=== PATIENT | female | born 1950 | race Caucasian/White ===

== ENCOUNTER → 2017-08-30 | Outpatient (CLI) | payer OTHER | LOC: M.RAD 08-28 14:02 | DX: R92.0 Mammographic microcalcification found on diagnostic imaging of breast (principal); Z85.3 Personal history of malignant neoplasm of breast ==

== ENCOUNTER → 2018-08-31 | Outpatient (CLI) | payer MEDICARE, OTHER | LOC: M.RAD 10:16 | DX: Z12.31 Encounter for screening mammogram for malignant neoplasm of breast (principal) ==

== ENCOUNTER → 2018-09-05 | Outpatient (CLI) | payer MEDICARE, OTHER ==
--- NOTE | 2018-09-05 13:42 | 2DMMODE ---
[place] [address] 2 D/M-MODE ECHOCARDIOGRAM Name: JENNYSKYLERRA MARTINEZ Room: [facility]#: [id number] Admission: 09/05/18 Attend Phys: Karon Flores Discharge: Date of : 54 Date of Service: 09/05/18 1342 Report #: [id number] THIS REPORT FOR: //name// APPROVED REPORT Study performed: 09/05/2018 07:59:49 EXAM: Comprehensive 2D, Doppler, and color-flow Echocardiogram Patient Location: Out-Patient BSA: 1.64 HR: 74 bpm BP: 135/68 mmHg Other Information Study Quality: Technically Difficult Technically limited study due to Breast Implant. Indications Chest Pain 2D Dimensions IVSd: 8.09 (7-11mm) LVOT Diam: 18.56 (18-24mm) LVDd: 40.71 mm PWd: 7.77 (7-11mm) Ascending Ao: 26.26 (22-36mm) LVDs: 24.34 (25-40mm) Aortic Root: 16.38 mm Volumes Left Atrial Volume (Systole) LA ESV Index: 11.60 mL/m2 Aortic Valve AoV Peak Jose Armando.: 0.76 m/s AO Peak Gr.: 2.34 mmHg LVOT Max P.33 mmHg AO Mean Gr.: 1.41 mmHg LVOT Mean P.26 mmHg LVOT Max V: 0.76 m/s AO V2 VTI: 17.74 cm LVOT Mean V: 0.53 m/s CITLALLI (VTI): 2.64 cm2 LVOT V1 VTI: 17.31 cm Mitral Valve E/A Ratio: 1.28 MV Decel. Time: 180.26 ms MV E Max Jose Armando.: 0.75 m/s MV PHT: 52.28 [place] [address] 2 D/M-MODE ECHOCARDIOGRAM Name: SKYLER ALVARADO JUAN Room: [facility]#: [id number] Admission: 09/05/18 Attend Phys: Karon Flores Discharge: Date of : 54 Date of Service: 09/05/18 1342 Report #: [id number] MVA (PHT): 4.21 cm2 TDI E/Lateral E': 5.77 E/Medial E': 7.50 Medial E' Jose Armando.: 0.10 m/s Lateral E' Jose Armando.: 0.13 m/s Pulmonary Valve PV Peak Jose Armando.: 0.79 m/s PV Peak Gr.: 2.51 mmHg Left Ventricle The left ventricle is normal size. There is normal LV segmental wall motion. There is normal left ventricular wall thickness. Left ventricular systolic function is normal. The left ventricular ejection fraction is within the normal range. LVEF is 55-60%. The left ventricular diastolic function is normal. Right Ventricle The right ventricle is normal size. The right ventricular systolic function is normal. Atria The left atrium size is normal. The right atrium size is normal. Aortic Valve The aortic valve is normal in structure. No aortic regurgitation is present. There is no aortic valvular stenosis. Mitral Valve The mitral valve is normal in structure. Mild mitral regurgitation. No evidence of mitral valve stenosis. Tricuspid Valve The tricuspid valve is normal in structure. There is no tricuspid valve regurgitation noted. Pulmonic Valve Pulmonic valve is not well visualized. There is no pulmonic valvular regurgitation. Great Vessels The aortic root is normal in size. IVC is normal in size and collapses >50% with [place] [address] 2 D/M-MODE ECHOCARDIOGRAM Name: SKYLER ALVARADO Room: [facility]#: [id number] Admission: 09/05/18 Attend Phys: Karon Flores Discharge: Date of : 54 Date of Service: 09/05/18 1342 Report #: [id number] There is no pericardial effusion. <Conclusion> Left ventricular systolic function is normal. The left ventricular ejection fraction is within the normal range. <ELECTRONICALLY SIGNED> By: Randy Chapman MD, FACC 09/05/18 1342 134 41 Randy Chapman MD, FAC /INF
== END ==
LOC: M.CRD 08-20 15:59
DX: I34.0 Nonrheumatic mitral (valve) insufficiency (principal); M85.851 Other specified disorders of bone density and structure, right thigh; Z78.0 Asymptomatic menopausal state

== ENCOUNTER → 2018-09-10 | Outpatient (CLI) | payer MEDICARE, OTHER ==
--- NOTE | 2018-09-11 16:04 | 24HR ---
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 The total time analyzed was 23:53 hours. Start time was 10:11am1. There was a total of 542315 beats. Less than 1% were Ventricular beats, less than 1% were Supraventricular beats, and patient is not paced. Mean Heart Rate: 84 Total Beats: [id number] Maximum Heart Rate:163 @ 2:28pm1 Tachycardia beats: 53979 (>=100 BPM) 29% Minimum Heart Rate: 57 @ 9:39pm1 Bradycardia beats: 0 (<= 50 BPM) 0% Pauses: 0 (> 2.5 sec.) Longest RR at: 1.172 seconds at 5:07am2 Conclusion 1. underlying Normal sinus 2. No SVT or AFIB 3. no pauses 4. Diary returned revealed symptoms of lightheadedness, didn't correlate with abnormal ecg Electronically Signed On 09-11-2018 16:04:18 CDT by Jessee Conroy [email or web address] <ELECTRONICALLY SIGNED> By: Jessee Conroy MD, FACC 09/11/18 1604 1119 1119 Jessee Conroy MD, FACC /EPI
== END ==
LOC: M.CRD 09:55
DX: R00.2 Palpitations (principal); R42 Dizziness and giddiness; R55 Syncope and collapse

== ENCOUNTER → 2019-09-05 | Outpatient (CLI) | payer MEDICARE, OTHER | LOC: M.RAD 08:06 | DX: Z12.31 Encounter for screening mammogram for malignant neoplasm of breast (principal) ==

== ENCOUNTER → 2020-09-07 | Outpatient (CLI) | payer MEDICARE, OTHER | LOC: M.RAD 08:30 | PROVIDERS: ATTEND Family Medicine | DX: Z12.31 Encounter for screening mammogram for malignant neoplasm of breast (principal) ==